=== PATIENT | male | born 1990 | race Caucasian/White ===

== ENCOUNTER 2018-04-04 15:23 | Emergency (ER) | payer MEDICAID ==
--- NOTE | 2018-04-04 17:15 | EDPHY ---
H & P Smoking Status: Never smoked Time Seen by Provider: 04/04/18 17:01 HPI/ROS: CHIEF COMPLAINT: Left pretibial laceration HISTORY OF PRESENT ILLNESS: 28-year-old male with up-to-date tetanus arrives via private vehicle complaining of left pretibial laceration. He was rock climbing, fell and impacted his left pretibial region against a rock. He was able to continue climbing, he is able to hike out a few miles and is able to bear full weight with no underlying pain. He went to Urgent Care was referred to the ER for evaluation. He denies dorsiflexion plantar flexion deficits. Tetanus is up-to-date PHYSICAL EXAM (Prior to examination, patient consented to physical exam, hands were washed and my usual and customary physical exam procedures followed) 1) GENERAL: Well-developed, well-nourished, alert and oriented. Appears to be in no acute distress. 2) HEAD: Normocephalic 3) HEENT: sclera anicteric 4) LUNGS: Breathing comfortably. 5) SKIN: Left pretibial region 4 cm laceration with an underlying 2 cm fascial facial laceration . No foreign bodies visualized 6) MUSCULOSKELETAL: Dorsiflexion plantar supination pronation of foot are intact distally with no deficits. 7) NEUROLOGIC: Full sensation intact distally (Ajay Denny) Constitutional: Initial Vital Signs Temperature (C) 37 C 04/04/18 15:26 Heart Rate 72 04/04/18 15:26 Respiratory Rate 16 04/04/18 15:26 Blood Pressure 132/82 H 04/04/18 15:26 O2 Sat (%) 97 04/04/18 15:26 O2 Delivery Mode Room Air [facility]/Departure - [facility] Imaging: I viewed and interpreted images myself - [facility] Imaging Results: Images reviewed myself (Ajay Denny) Procedures: Procedure: Laceration repair. I explained the indications, risks and benefits for both laceration repair and anesthetic administration. Verbal consent was obtained from the patient. The laceration on the left pretibial region was anesthetized using 0.5% bupivicaine with epinephrine. After anesthetic administered the patient was observed for a period of time and had no apparent adverse effects. The wound was cleaned, prepped, draped in normal sterile fashion and explored to its base. No foreign body seen, no foreign bodies palpated. A small fascial defect measuring 2 cm appreciated. This is closed with 2 simple interrupted 3 0 Vicryl sutures. The skin is closed with 6 simple interrupted 3 0 Prolene sutures. The wound repair was complex. The procedure was performed by myself. Patient has been informed that scarring will occur, although efforts have been made to minimize this. ( Ajay Denny) ED Course/Re-evaluation: Re-evaluation with serial exams. X-ray reveals no osseous injury, no radiopaque foreign body. Return to the ER in 14 days for suture removal. I saw this patient independently based on established practice protocols. Care of patient under supervision of secondary supervising physician Dr Robles . ( Ajay Denny) The patient was evaluated and managed by the Physician Ticket Dispatcher. I discussed the patient's presentation and course with the midlevel provider with them and agree with the evaluation. My co-signature indicates that I have reviewed this chart and I agree with the findings and plan of care as documented. I am the secondary supervising physician. (Mima Robles) - Depart Disposition: Home, Routine, Self-Care Clinical Impression: Left pretibial laceration Condition: Good Instructions: Care For Your Stitches (ED), Laceration (ED) Additional Instructions: Return to the ER if you develop redness, swelling, discharge, warmth to the wound, red streaks going up your leg, or any other symptoms that concern you. Referrals: Return, to the ER in 14 days for suture removal [Other] - 04/18/18
[2018-04-04 18:14] VITALS: BP 138/72
== END 2018-04-04 18:12 | disposition home or self-care (01) ==
PROC: 0HQLXZZ Repair Left Lower Leg Skin, External Approach (ICD-10-PCS; principal; 2018-04-04)
DX: S81.812A Laceration without foreign body, left lower leg, initial encounter (principal); W17.89XA Other fall from one level to another, initial encounter; Y99.8 Other external cause status; Y93.31 Activity, mountain climbing, rock climbing and wall climbing